=== PATIENT | male | born 1990 | race Caucasian/White ===

== ENCOUNTER 2018-02-03 07:35 | Emergency (ER) | payer MEDICAID ==
[~2018-02-03] VITALS: Ht 162.6 cm; Wt 55.8 kg
[2018-02-03 07:38] VITALS: Ht 162.6 cm; Wt 55.8 kg
[2018-02-03 08:32] LABS: BASOPHIL % 0.8 % (0-2); PLATELET COUNT 201 x10^3mcL (130-400); RED CELL DISTRIBUTION WIDTH 12.9 % (11.5-14.5)
[2018-02-03 08:40] LABS: CALCIUM 9.3 mg/dL (8.5-10.1); CARBON DIOXIDE 26.4 mmol/L (21-32); CHLORIDE SERUM 102 mmol/L (98-107); CREATININE SERUM 1.2 mg/dL (0.7-1.3); GFR1 > 60 mL/min; GLUCOSE SERUM 129 mg/dL (74-106); SODIUM SERUM 137 mmol/L (136-145)
[2018-02-03 08:45] LABS: ALBUMIN 4.3 g/dL (3.4-5.0); ALKALINE PHOSPHATASE 104 U/L (46-116); ALT/SGPT 96 U/L (16-63); AST/SGOT 53 U/L (15-37); LIPASE 72 IU/L (73-393)
[2018-02-03 08:52] LABS: TOTAL PROTEIN, SERUM 8.6 g/dL (6.4-8.2)
[2018-02-03 09:10] VITALS: BP 122/69
== END 2018-02-03 10:38 | disposition home or self-care (01) ==
LOC: ED 07:35
PROVIDERS: Emergency Medicine
DX: R11.2 Nausea with vomiting, unspecified (principal); R19.7 Diarrhea, unspecified; R10.12 Left upper quadrant pain; R10.11 Right upper quadrant pain; Z90.5 Acquired absence of kidney
CPT/HCPCS: J2405; J3490; J7030; Q0092

== ENCOUNTER 2019-10-05 19:49 | Emergency (ER) | payer SELFPAY ==
[~2019-10-05] VITALS: Ht 165.1 cm; Wt 61.2 kg
[2019-10-05 19:55] VITALS: BP 112/63; Ht 165.1 cm; Wt 61.2 kg
== END 2019-10-05 21:50 | disposition home or self-care (01) ==
LOC: ED 19:49
DX: S16.1XXA Strain of muscle, fascia and tendon at neck level, initial encounter (principal); V43.52XA Car driver injured in collision with other type car in traffic accident, initial encounter; Y93.I9 Activity, other involving external motion; Y92.488 Other paved roadways as the place of occurrence of the external cause; Y99.8 Other external cause status